=== PATIENT | female | born 1940 | race Caucasian/White ===

== ENCOUNTER 2021-07-25 13:02 | Emergency (ER) | payer MEDICARE, OTHER ==
[~2021-07-25] VITALS: Ht 152.4 cm; Wt 60.0 kg
--- NOTE | 2021-07-25 14:59 | NUR ---
PT HAS READ FACT SHEET ON REGENERON WITH FAMILY MEMBER, VERBALIZED UNDERSTANDING INFORMATION, NO QUESTIONS AND WOULD LIKE TO RECEIVED MEDICATIONS
[2021-07-25] MEDS ORDERED: CASIRIVIMAB/IMDEVIMAB inject. 10 ML in normal saline 100ml IV soln 100 ML IV ONE (15:00)
[2021-07-25 17:44] VITALS: BP 153/77
== END 2021-07-25 16:40 | disposition home or self-care (01) ==
LOC: ER 13:03
DX: U07.1 COVID-19 (principal); R05 Cough; R50.9 Fever, unspecified; I10 Essential (primary) hypertension
CPT/HCPCS: 71045; 99283; M0243; Q0244